=== PATIENT | female | born 1975 | race Caucasian/White ===

== ENCOUNTER → 2017-04-09 | Outpatient (CLI) | payer BC, OTHER ==
[~2017-04-09] VITALS: Ht 162.6 cm; Wt 52.7 kg
[~2017-04-09] MED LIST: CBD OIL PO; HYDROXYCHLOROQ200 M1 PO; MOBIC15 MG PO; NEURONTIN 300300 M1 PO; PERCOCET 10-321 EACH PO; TOPAMAX 25 MG T25 M1 PO; ZANAFLEX4 MG PO
--- NOTE | ~2017-04-09 | HPC ---
[facility] [place] [address] PAIN MANAGEMENT CONSULTATION Name: ALDEN ABAD Room #: [facility].#: [id number] Admission: 04/09/17 Attend Phys: Rikki Boss MD Discharge: Date of : 71 Report #: [id number] THIS REPORT FOR: //name// CC: Rikki Tapia MD DATE OF SERVICE: 04/09/2017 CHIEF COMPLAINT: Chronic pain in hands, feet, spine, neck. HISTORY OF PRESENT ILLNESS: The patient is a 41-year-old female who has been referred to the pain clinic for evaluation. The patient states that she has had a chronic problem involving her joints, feet, hands, spine, neck as well as muscles. She suffers from systemic lupus erythematosus and has other organ involvement. She has been seen in the pain clinic in the past. Her drug screen was positive. There was a finding of mass involved. She says that she has no idea how that got into her blood. She also notes involving her having failed multiple urine drug screens and has substance detected in the urine, which did not correspond with what she had been taking. There was a note indicating that she was taken her [id number] Vicodin at some point. ALLERGIES: No known drug allergies. MEDICATIONS: CBD oil 2 drops daily, oxycodone 10/325 one p.o. q. 4 hours, Plaquenil 200 mg, Zanaflex 4 mg b.i.d., Topamax 25 mg t.i.d. or q.i.d., Neurontin 300 mg daily at 9:00. PAST MEDICAL HISTORY: Anemia, joint disease/arthritis, systemic lupus erythematosus with organ involvement, and chronic abdominal pain. PAST SURGICAL HISTORY: Cholecystectomy. 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 She has had to take in the interim leave because of her condition. She is , has one child, never smoked cigarettes. REVIEW OF SYSTEMS: Questionnaire recent weight change, decreased appetite, fatigue, palpitations, some shortness of breath while lying flat, loss of appetite, abdominal pain recurring headaches, numbness and tingling sensation, tremors, insomnia, anemia. PHYSICAL EXAMINATION: Blood pressure 108/70, pulse 74, respiratory rate 16, saturations 100%. Height 5 feet 4 inches, weight 116 pounds, BMI is 19. The patient appears appropriately dressed. She speaks with fluent jarad. Appears to be taking care of herself in a reasonable fashion. [place] [address] PAIN MANAGEMENT CONSULTATION Name: ALDEN ABAD Room #: [facility].#: [id number] Admission: 04/09/17 Attend Phys: Rikki Boss MD Discharge: Date of : 71 Report #: [id number] Complains of abdominal pain and pain in the aforementioned areas. Abdominal pain associated with worsening and exacerbations of her SLE. IMPRESSION: 1. Chronic pain, has used opioid medications to help with this in the past. 2. Systemic lupus erythematosus. 3. Arthritic complaints. RECOMMENDATIONS: We discussed treatment options with the patient. Given that she has violated the contracts with other pain clinics, we generally do not accept patients who have violated contracts. They usually required more help than our pain clinic is able to supply. We will have her followup with her primary physician. Hopefully, they can continue with her medications to keep her in a comfortable place until they can find a facility/organization who was able to meet her needs. We would like to thank you for letting us participate in her care. We hope she continues to improve. <ELECTRONICALLY SIGNED> By: Rikki Boss MD 04/25/17 [id number] Rikki Boss MD /[facility]
[2017-04-09 09:42] VITALS: BP 108/70
== END ==
LOC: PAIN 07:11
DX: G89.29 Other chronic pain (principal); L93.2 Other local lupus erythematosus; F11.90 Opioid use, unspecified, uncomplicated; Z90.49 Acquired absence of other specified parts of digestive tract